=== PATIENT | male | born 1990 | race African-American/Black ===

== ENCOUNTER 2019-09-10 13:25 | Emergency (ER) | payer OTHER, SELFPAY ==
--- NOTE | 2019-09-10 13:30 | ED.WOUNDLAC ---
HPI - Wound/Laceration General Chief Complaint: Wound/Laceration Stated Complaint: three spider bites on my ass Time Seen by Provider: 09/10/19 13:29 Source: patient Mode of arrival: ambulatory Limitations: no limitations History of Present Illness HPI narrative: A 29 y/o male pt presents to the ED, with c/o possible spider bites x 2 to his buttocks x 2 days ago. Pt states he slept in his friends basement and upon waking up noticed pain and x 2 sores to his buttocks that he believes are spider bites. He notes swelling, pus drainage, and pain to the site of bites. Pt denies fever, N/V/D, or any other bites. He denies any significant PMHx, and reports NKA. Onset (ago): day(s) (2) Location: other (buttocks ) Place: other (friends home) Context: other (possible spider bite) Associated symptoms: pain and other (pus drainage and swelling to sores) Related Data Allergies Allergy/AdvReac Type Severity Reaction Status Date / Time No Known Allergies Allergy Verified 09/10/19 14:15 Review of Systems Review of Systems: All systems reviewed & are unremarkable except as noted in HPI and below Constitutional: Constitutional: Denies fever(s) Gastrointestinal: Gastrointestinal: Denies diarrhea, Denies nausea and Denies vomiting Integumentary/Breasts: Skin/Breast: Reports sores (x 2 to buttocks) and Reports other (pain, swelling and pus drainage to sores) PMFSH Past Medical History Medical History (Updated 09/10/19 @ 16:27 by [place]anda) No significant past medical history Surgical History Surgical History (Updated 09/10/19 @ 16:27 by Campanda) No significant past surgical history Social History Social History (Updated 09/10/19 @ 16:27 by Campanda) Smoking status: Unknown if ever smoked Gender identity (if verbalized by the patient): Male Exam Const: General: healthy appearing and no acute distress Nutritional Appearance: well nourished HENMT: Mouth: Yes lip normal and Yes moist mucous membranes Eyes: Conjunctivae: conjunctivae normal Pupils: Equal, round and reactive pupils present Resp: Effort & Inspection: normal respiratory effort Auscultation: clear to auscultation bilaterally Cardio: Rate: regular rate Rhythm: regular rhythm Heart sounds: no murmurs GI: GI Palp: No Soft to palpation and No Tenderness to palpation present (GI) Auscultation: normal bowel sounds Back/Spine/Pelvis: Other: Full ROM Skin: General skin exam: dry skin and other (warm) Other: bilateral areas of erythema and induration with central fluctuance to the superior gluteal cleft. Neuro: General: patient oriented x3 (alert) Speech: normal speech Extrem: General: full ROM Psych: Mental Status: mental status grossly normal Affect: normal affect Course Vital Signs Vital signs: Vital Signs Temperature 36.4 C L 09/10/19 13:42 Pulse Rate 106 H 09/10/19 13:42 Respiratory Rate 18 09/10/19 13:42 Blood Pressure 109/79 09/10/19 13:42 Pulse Oximetry 96 09/10/19 13:42 Temperature 36.4 C L 09/10/19 13:42 Pulse Rate 106 H 09/10/19 13:42 Respiratory Rate 18 09/10/19 13:42 Blood Pressure 109/79 09/10/19 13:42 Pulse Oximetry 96 09/10/19 13:42 Procedures Abscess I/D lower extremity: Date of Incision: 09/10/19 Side (if applicable): left Local Anesthetic: lidocaine 1% and with epi Amount of anesthesia used (mL): 3 Technique: incised with #11 blade Amount of fluid expressed (mL): 1 Irrigation: Yes Packing used?: none I&D Results: Pus Complications: pain back: Date of Incision: 09/10/19 Side (if applicable): right (buttock) Local Anesthetic: lidocaine 1% and with epi Amount of anesthesia used (mL): 4 Technique: incised with #11 blade Amount of fluid expressed (mL): 5 Irrigation: Yes Packing used?: iodoform I&D Results: Pus MDM - Wound/Lacer
[2019-09-10 13:42] VITALS: BP 109/79; PULSE 106; RESP 18; TEMP 36.4; O2SAT 96
== END 2019-09-10 14:59 | disposition home or self-care (01) ==
PROVIDERS: Emergency Provider Emergency Medicine
DX: L02.31 Cutaneous abscess of buttock (principal)
CPT/HCPCS: 10061; 99283; A9270

== ENCOUNTER 2020-07-12 05:57 | Emergency (ER) | payer OTHER, SELFPAY ==
[2020-07-12 05:59] VITALS: BP 160/112; PULSE 87; RESP 20; TEMP 36; O2SAT 92
--- NOTE | 2020-07-12 06:04 | ED.OVERDOSE ---
HPI - Overdose General Chief Complaint: Overdose Stated Complaint: od Time Seen by Provider: 07/12/20 05:59 Source: patient and EMS Mode of arrival: EMS Limitations: no limitations History of Present Illness HPI Narrative: A 30-year-old male was brought in by the emergency medical crews after an alleged overdose. Reportedly police had found the patient. It is unclear if someone called or if he was witnessed by a passerby. When EMS arrived they noted the ED had pulled him out of the car and had already administered intranasal Narcan. Patient was reportedly not breathing and unresponsive. By the time EMS arrived he was starting to come around from the Narcan. Once he is arrived in the ED the patient is adamant that he wants to leave, he wants to AMA. This is not my first rodeo . That he is very familiar with this and wants to leave. Related Data Allergies Allergy/AdvReac Type Severity Reaction Status Date / Time No Known Allergies Allergy Verified 09/10/19 14:15 Review of Systems Review of Systems: Narrative: CONSTITUTIONAL: Denies fever, chills, or sweats. EYES: Denies visual changes, redness, or discharge. ENT: Denies rhinorrhea, congestion, sore throat, or otalgia. CARDIOVASCULAR: Denies chest pain, palpitations, or edema. RESPIRATORY: Denies cough or dyspnea. GASTROINTESTINAL: Denies abdominal pain, nausea, vomiting, or diarrhea. GENITOURINARY: Denies dysuria or hematuria. SKIN: Denies rash or itching. MUSCULOSKELETAL: Denies back pain, joint pain, or myalgia. NEUROLOGIC: Denies headache, numbness, dizziness, or weakness. PSYCHIATRIC: Denies anxiety or depression. [facility] Past Medical History Medical History No significant past medical history Surgical History Surgical History No significant past surgical history Social History Social History Smoking status: Unknown if ever smoked Gender identity (if verbalized by the patient): Male Exam Narrative: Exam Narrative: GENERAL: Well-appearing, well-nourished, and in no acute distress. HEAD: Normocephalic, atraumatic. EYES: PERRLA and EOMI. ENT: Nares clear, no rhinorrhea or epistaxis. Mucous membranes moist. Oropharynx without tonsillar hypertrophy exudate or other lesions. Bilateral TMs pearly olivier nonbulging NECK: Supple. No adenopathy or masses. No carotid bruits or JVD CHEST: Clear to auscultation. No respiratory distress. No wheezes rales or rhonchi HEART: Regular rate and rhythm. No murmur heard. Normal peripheral pulses. ABDOMEN: Soft, nontender, nondistended, normal active bowel sounds. EXTREMITIES: Normal range of motion. No edema. SKIN: Warm, dry, no rash. NEURO: No focal deficits. Alert and oriented x3. PSYCH: Normal mood and affect. MDM - Overdose MDM Narrative Medical decision making narrative: In brief this is a 30-year-old male who had been brought in by EMS for an alleged OD. 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 Prior to this he admitted that he had been clean for approximately a month. Patient was administered Narcan. He is somewhat agitated but cooperative on exam. The risks versus benefits of staying and signing out AMA was explained to the patient by myself multiple times with several nurses as witnesses. Patient still states that he would like to go he understands the risks and has signed out AGAINST MEDICAL ADVICE. Discharge Plan Discharge Clinical Impression: Drug overdose Patient Disposition: Left Against Medical Advice Condition: Serious Prescriptions: No Action sulfamethoxazole-trimethoprim [Bactrim DS] 800-160 mg tablet 1 tablet PO Q12H Qty: 14 RF: 0 sulfamethoxazole-trimethoprim [Bactrim DS] 800-160 mg tablet 1 tablet PO Q12H Qty: 14 RF: 0 Follow-up/Referrals: UNKNOWN,DOCTOR [Primary Care Provider] -
--- NOTE | 2020-07-12 06:06 | PC.NURSE ---
Dr. Barnhart at bedside, pt still continues to refuse to be evaluated or seen. Dr. Barnhart explains patient's rights. Pt continues to refuse all treatment. AMA form signed per patient after risks explained to patient to include .
[2020-07-12 06:11] VITALS: PULSE 88; RESP 19; O2SAT 94
== END 2020-07-12 06:10 | disposition left against medical advice (07) ==
LOC: ANHED 06:28
PROVIDERS: Emergency Provider Emergency Medicine
DX: T40.411A Poisoning by fentanyl or fentanyl analogs, accidental (unintentional), initial encounter (principal)
CPT/HCPCS: 99281